=== PATIENT | male | born 1985 | race Caucasian/White ===

== ENCOUNTER 2016-04-18 16:46 | Emergency (ER) | payer SELFPAY ==
[~2016-04-18] VITALS: Ht 182.9 cm; Wt 100.0 kg
[2016-04-18 16:53] VITALS: BP 150/86; TEMP 98.3
[2016-04-18] MEDS ORDERED: BACTROBAN15 GM TOP (19:16)
[2016-04-18 19:27] VITALS: PULSE 72
== END 2016-04-18 18:47 | disposition left against medical advice (07) ==
LOC: COL.ER 16:46
DX: T63.481A Toxic effect of venom of other arthropod, accidental (unintentional), initial encounter (principal); L23.89 Allergic contact dermatitis due to other agents; S40.861A Insect bite (nonvenomous) of right upper arm, initial encounter
CPT/HCPCS: J8540

== ENCOUNTER 2016-09-28 00:06 | Emergency (ER) | payer OTHER ==
[~2016-09-28] VITALS: Ht 180.3 cm; Wt 106.8 kg
[~2016-09-28 00:06] MED LIST: BACTROBAN15 GM TOP
[2016-09-28 00:15] VITALS: TEMP 98.5
[2016-09-28] MEDS ORDERED: ULTRAM 50MG TAB50 MG PO (01:42)
[2016-09-28 02:19] VITALS: BP 139/83; PULSE 79
== END 2016-09-28 02:09 | disposition home or self-care (01) ==
LOC: COL.ER 00:06
DX: S61.215A Laceration without foreign body of left ring finger without damage to nail, initial encounter (principal); W26.0XXA Contact with knife, initial encounter